=== PATIENT | female | born 1975 | race Caucasian/White ===

== ENCOUNTER 2018-11-05 01:44 | Emergency (ER) | payer BC ==
[~2018-11-05] VITALS: Ht 157.5 cm; Wt 61.2 kg
[2018-11-05] MEDS ORDERED: DEXAMETHASONE 4 MG TABLET PO ONE (03:00)
[2018-11-05] MEDS ORDERED: IPRATRPIUM/ALBUTEROL 0.5/2.5MG 3 ML NEBU. NEB ONE (03:00)
--- NOTE | 2018-11-05 03:03 | PHYS DOC ---
Past Medical History Past Medical History: Asthma (since 20) Adult General Chief Complaint Chief Complaint: ASTHMA HPI HPI Patient is a 43 year old female with hx of asthma who presents with SOB. Pt reports having SOB since yesterday (11/03/2018). She also reports some mild dry cough. Pt mentions having family members with cold symptoms and stomach "bug" since last week. Her has been doing some yard work recently that may have contributed to her symptoms. Pt states that acute asthma exacerbation is common for her in the spring and fall. She took her last dose of Advair at 4: 30pm (11/04/2018) and has been using Albuterol every 2 hrs for the past 24 hrs. She reports minimal relieve in her symptoms. Denies any substernal chest pain, N /V. Review of Systems Review of Systems Constitutional: Denies fever or chills [] Eyes: Denies change in visual acuity, redness, or eye pain [] HENT: Denies nasal congestion or sore throat [] Respiratory: Endorses dry cough and shortness of breath [] Cardiovascular: No additional information not addressed in HPI [] GI: Denies abdominal pain, nausea, vomiting, bloody stools or diarrhea [] : Denies dysuria or hematuria [] Musculoskeletal: Denies back pain or joint pain [] Integument: Denies rash or skin lesions [] Neurologic: Denies headache, focal weakness or sensory changes [] Complete systems were reviewed and found to be within normal limits, except as documented in this note. Current Medications Current Medications Current Medications Medications (Trade) Dose Ordered Sig/Venancio Start Time Stop Time Status Last Admin Dose Admin Albuterol/ Ipratropium (Duoneb) 3 ml 1X ONCE 11/05/18 03:00 11/05/18 03:01 DC 11/05/18 03:11 3 ML Dexamethasone (Decadron) 10 mg 1X ONCE 11/05/18 03:00 11/05/18 03:01 DC 11/05/18 03:05 10 MG Allergies Allergies Allergies Coded Allergies Type Severity Reaction Last Updated Verified amoxicillin Allergy Unknown 11/05/18 Yes Physical Exam Physical Exam Constitutional: Well developed, well nourished, no acute distress, non-toxic appearance. [] HENT: Normocephalic, atraumatic, bilateral external ears normal, oropharynx moist, no oral exudates, nose normal. [] Eyes: PERRL, EOMI, conjunctiva normal, no discharge. [] Neck: Normal range of motion, no tenderness, supple, no stridor. [] Cardiovascular:Heart rate regular rhythm, no murmur [] Lungs & Thorax: Bilateral diffuse wheezes.[] Abdomen: Bowel sounds normal, soft, no tenderness [] Skin: Warm, dry, no erythema, no rash. [] Back: No tenderness, no CVA tenderness. [] Extremities: No tenderness, no cyanosis, no clubbing, ROM intact, no edema. [] Neurologic: Alert and oriented X 3, normal motor function, normal sensory function, no focal deficits noted. [] Psychologic: Affect normal, judgement normal, mood normal. [] Current Patient Data Vital Signs Vital Signs Date Time Temp Pulse Resp B/P (MAP) Pulse Ox O2 Delivery O2 Flow Rate FiO2 11/05/18 03:25 96 Room Air 11/05/18 02:00 98.0 105 26 119/58 (78) 98.0 Lab Values Laboratory Tests Test 11/05/18 02:22 POC Urine HCG, Qualitative Hcg negative (Negative) EKG EKG [] Radiology/Procedures Radiology/Procedures [] Course & Med Decision Making Course & Med Decision Making Pertinent Labs and Imaging studies reviewed. (See chart for details) [] Dragon Disclaimer Dragon Disclaimer This electronic medical record was generated, in whole or in part, using a voice recognition dictation system. Departure Departure Impression: Primary Impression: Asthma exacerbation Disposition: HOME, SELF-CARE Condition: IMPROVED Patient Instructions: Asthma, Adult, [id number] Scripts Prednisone (PREDNISONE) 20 Mg Tablet 2 TAB PO DAILY, #8 TAB Start on Sun11/06/18 Prov: SWAPNA ENRIQUEZ DO 11/05/18 Problem Qualifiers Primary Impression: Asthma exacerbation Asthma severity: mild Asthma persistence: intermittent Qualified Codes: J45.21 - Mild intermittent asthma with (acute) exacerbation SWAPNA ENRIQUEZ DO Nov 05, 2018 03:03
[2018-11-05 03:18] VITALS: BP 144/77
[2018-11-05] MEDS ORDERED: PRED20TA PO (03:40)
== END 2018-11-05 03:50 | disposition home or self-care (01) ==
LOC: ER 01:44
DX: J45.21 Mild intermittent asthma with (acute) exacerbation (principal); Z88.1 Allergy status to other antibiotic agents
CPT/HCPCS: 81025; 94640; 94664; 99283; J7620; J8540